=== PATIENT | female | born 1955 | race Caucasian/White ===

== ENCOUNTER 2016-11-15 08:47 | Observation (INO) | payer OTHER ==
[2016-11-15] VITALS (28 sets, daily range): BP systolic 102–143; BP diastolic 59–92; PULSE 70–98; RESP 11–21; Ht 172.7 cm; Wt 73.3 kg
[~2016-11-15] VITALS: Ht 172.7 cm; Wt 73.3 kg
[~2016-11-15 08:47] MED LIST: CEFAZOLIN 2 GM/50 ML (PMX) 50 ML IVPB ONE; SOD CHLORIDE 0.9% 1,000 ML IV SCH
[2016-11-15 09:59] LABS: BASOPHIL # 0.1 10^3/ul (0.0-0.1); BASOPHILS % 1.1 % (0.0-2.0); EOSINOPHILS # 0.2 10^3/ul (0.0-0.5); EOSINOPHILS % 3.5 % (0.0-7.0); HEMATOCRIT 37.7 % (37.0-47.0); HEMOGLOBIN 12.1 g/dl (12.0-16.0); LYMPHOCYTES # 2.2 10^3/ul (0.8-2.9); MEAN CORPUSCULAR HEMOGLOBIN 28.9 pg (29.0-33.0); MEAN CORPUSCULAR HGB CONC 32.1 g/dl (32.0-37.0); MEAN PLATELET VOLUME 9.8 fl (7.4-10.4); MONOCYTE # 0.5 10^3/ul (0.3-0.9); MONOCYTES % 7.6 % (0.0-11.0); NEUTROPHILS % 53.5 % (39.0-77.0); PLATELET COUNT 393 10^3/UL (140-415); RED BLOOD COUNT 4.19 10^6/ul (4.20-5.40); RED CELL DISTRIBUTION WIDTH 13.1 % (11.5-14.5); WHITE BLOOD COUNT 6.6 10^3/ul (4.8-10.8)
[2016-11-15 10:31] LABS: INR 0.9; PROTIME 12.1 Sec (12.2-14.2); PT RATIO 0.9
[2016-11-15 10:32] LABS: PARTIAL THROMBOPLASTIN TIME 30.3 Sec (25.0-35.0)
[2016-11-15 10:44] LABS: ALBUMIN 4.1 g/dl (3.3-4.9); ALBUMIN/GLOBULIN RATIO 1.46; BILIRUBIN,INDIRECT 0.1 mg/dl (0-1.1); BILIRUBIN,TOTAL 0.1 mg/dl (0.2-1.3); TOTAL PROTEIN 6.9 g/dl (6.1-8.1)
[2016-11-15 11:06] LABS: CALCIUM 9.5 mg/dl (8.4-10.2); CREATININE 0.62 mg/dl (0.44-1.00); POTASSIUM 3.8 mmol/L (3.5-5.1)
--- NOTE | 2016-11-15 11:08 | RADRPT ---
PROCEDURE: XR Chest. CLINICAL INDICATION: Preoperative. Left breast cancer. TECHNIQUE: Single frontal view. COMPARISON: None. FINDINGS: The lungs are clear. The heart size is normal. There is no pleural effusion. There is no pneumothorax. IMPRESSION: 1. Normal chest radiograph. RPTAT: QQ .Germán Ruiz MD, MD Date Time Electronically viewed and signed by .Germán Ruiz MD, on 11/15/2016 11:07 .R/
[2016-11-15] MEDS ORDERED: ISOSULFAN BLUE 1% 5 ML INJ SC ONE (12:32)
[2016-11-15] MEDS ORDERED: CEFAZOLIN 1 GM INJ ONE (12:48)
[2016-11-15] MEDS ORDERED: PROPOFOL 20 ML ONE (12:48)
[2016-11-15] MEDS ORDERED: FENTAnyl 50 MCG/ML VIAL ONE (12:48)
[2016-11-15] MEDS ORDERED: ONDANSETRON 4 MG INJ ONE (12:48)
[2016-11-15] MEDS ORDERED: MIDAZOLAM 1 MG/ML 2 ML INJ ONE (12:48)
[2016-11-15] MEDS ORDERED: ROCURONIUM 50 MG INJ ONE (12:48)
[2016-11-15] MEDS ORDERED: METOCLOPRAMIDE 10 MG INJ ONE (12:48)
[2016-11-15] MEDS ORDERED: EPHEDrine SULFATE 50 MG/5 ML SYG ONE (13:18)
[2016-11-15] MEDS ORDERED: DIPHENHYDRAMINE 50 MG INJ IV PRN (13:30)
[2016-11-15] MEDS ORDERED: HYDROmorphONE (0.2 MG/ML) 10ML SYG IV PRN ×3 (13:30)
[2016-11-15] MEDS ORDERED: METOCLOPRAMIDE 10 MG INJ IV PRN (13:30)
[2016-11-15] MEDS ORDERED: ONDANSETRON 4 MG INJ IV PRN (13:30)
[2016-11-15] MEDS ORDERED: MEPERIDINE 25 MG INJ IV PRN (13:30)
[2016-11-15] MEDS ORDERED: OXYCODONE/ACETAMINOPHEN (5/325) TAB PO PRN ×2 (13:30)
[2016-11-15] MEDS ORDERED: HYDROmorphONE 2 MG/ML SYG ONE (13:58)
[2016-11-15] MEDS: traMADol 50 MG TAB PO PRN (15:27)
--- NOTE | 2016-11-15 15:39 | RADRPT ---
Vent Rate: 81 bpm RR Interval: 0 msec MN Interval: 166 msec QRS Duration: 80 msec QT Interval: 406 msec QTC Interval: 471 msec P-R-T Hughes: 51 - 34 - 49 degrees Normal sinus rhythm Cannot rule out Anterior infarct , age undetermined Abnormal ECG Electronically Signed By: Neo Talley [id number]
[2016-11-15] MEDS: ACETAMINOPHEN 1000MG/100ML IV 100 ML IVPB PRN (16:00)
--- NOTE | 2016-11-15 16:26 | OPR ---
DATE OF OPERATION: 11/15/2016 PREOPERATIVE DIAGNOSIS: Large triple negative left breast cancer. POSTOPERATIVE DIAGNOSIS: Large triple negative left breast cancer. OPERATION PERFORMED: Left partial mastectomy with axillary dissection utilizing sentinel lymph node technique, En bloc resection of portion of pectoralis major muscle. ANESTHESIA: General. ANESTHESIOLOGIST: Darby Campbell MD SURGEON: Jackson Mcdaniel MD ASSISTANTS: Freddy Kilgore MD, Elizabeth Kendall MD INDICATIONS FOR PROCEDURE: Patient is a very unfortunate 61-year- old female, alert, who noticed a mass in her left breast that began to grow very rapidly. Eventually she underwent medical evaluation and radiographic workup including biopsy, which revealed approximately 5 cm poorly differentiated, triple negative breast cancer. She was counseled as to the need for surgery where she requested an attempt at breast conservation. She was informed if the final margins were positive, she may need a completion mastectomy and she consented for a left partial mastectomy and axillary dissection utilizing the sentinel lymph node technique. OPERATIVE PROCEDURE: Patient brought to the operating theater and placed under general endotracheal tube anesthesia. The left breast and axillary region was prepped and draped in the usual sterile fashion. Approximately 4 mL of 1 percent Lymphazurin blue dye were then injected peritumoral. The breast was gently massaged for approximately 12 minutes. At this point, a 4 cm incision was made in the left axillary hairline and subcutaneous tissue was dissected with cautery down through the clavipectoral fascia. A dye stained lymphatic was traced to an enlarged sentinel node. There were several other enlarged nodes, therefore Dr. Mcdaniel made the decision to proceed with axillary dissection. With blunt dissection along the chest wall, the long thoracic nerve was identified and kept out of harm's way. More superiorly, the axillary vein and thoracodorsal neurovascular bundle were identified and kept out of harm's way. Level 1 and level 2 lymph node dissection then took place using the LigaSure device and final connective tissue attachments to the latissimus dorsi muscle were transected with cautery. The specimen was sent for pathologic analysis. The wound was irrigated, minimal bleeding was controlled with cautery. A number 10 flat Corey- Dalal drain was then brought through the left mid axillary line, cut to size and laid within the axilla. It was secured in place with 2-0 nylon suture in the standard fashion. The skin was then reapproximated with a 4-0 Vicryl suture in subcuticular fashion. Attention then was directed to performing the partial mastectomy. A very large mass was located between approximately the 11 o'clock and 3 o'clock location approximately 3 cm from nipple areolar border. A large curvilinear incision was made directly over the mass. Subcutaneous tissue was dissected with cautery. The skin edges were elevated with skin hooks and wide circumferential dissection of the tissue associated with the mass took place, taking care to ensure adequate margin. Upon dissecting down to the pectoralis major muscle was found the portions of the tumor were invading the muscle. This portion of the pectoralis major muscle was excised. The specimen was then elevated, transected, oriented and sent for permanent pathologic analysis. The wound was irrigated, minimal bleeding was controlled with cautery. Due to the large size of the defect, Dr. Mcdaniel made the decision to place a 10 flat Corey-Dalal drain within the wound cavity, it was brought through the mid axillary line, cut to size and laid within the wound cavity. The skin was then reapproximated with a 4-0 Vicryl suture in subcuticular fashion. Dermabond was then applied to both wounds. The patient tolerated the procedure well. Total blood loss was approximately 40 cc. There were no complications, and the patient was transported in stable condition to the recovery room, where a circumferential compression dressing was applied. Dictated By: Jackson Mcdaniel MD /abe/nilam /Document#: [id number] GABRIEL
[2016-11-15] MEDS: D5W-0.45 NACL + KCL 20 MEQ 1,000 ML IV SCH ×2 (18:20→22:15)
--- NOTE | 2016-11-15 18:44 | HP ---
DATE OF ADMISSION: 11/15/2016 HISTORY OF PRESENT ILLNESS: The patient is a 61-year-old female who was seen by Dr. Villagomez as an outpatient with poorly differentiated triple negative left breast cancer. The patient was brought into the hospital today and underwent left partial mastectomy and axillary dissection. The patient has history of core biopsy in the past. The patient did have significant postoperative pain and is being admitted for further evaluation. The patient denies any headache or syncope. No history of cough. No history of abdominal pain. No history of vomiting. No history of any previous focal weakness. No history of diabetes, hypertension, congestive heart failure. No history of CVA in the past. The patient reported that she was not taking any medication. Other than postoperative conditions, review of systems unremarkable. ALLERGIES: CODEINE AND IBUPROFEN. SOCIAL HISTORY: No smoking. No alcohol. FAMILY HISTORY: Noncontributory. PHYSICAL EXAMINATION: GENERAL: Patient conscious, awake, alert. VITAL SIGNS: Temperature 97.8, pulse 98, respirations 20, blood pressure 113/63, O2 sat 93-99 percent on room air. HEENT: Head atraumatic, normocephalic. Conjunctive and lids are normal. Oropharynx clear. NECK: No mass. CHEST: Fairly clear. CV: S1, S2 normal. No murmur. ABDOMEN: Soft, nontender. Bowel sounds present. EXTREMITIES: No leg edema. NEURO: The patient is awake, alert, with no gross focal deficit. DATA: Sodium 142, potassium 3.8, BUN 20, creatinine 0.6, glucose 94. Liver enzymes normal. Coagulation profile normal. CBC revealed white count of 6.6, hemoglobin 12.1, platelet 393. IMPRESSION: Invasive triple negative left breast cancer, status post left partial mastectomy and axillary dissection. PLAN: Patient admitted on medical floor. Patient will be started on clear liquid diet and will be advanced as tolerated. Continue SCD for DVT prophylaxis. We will start her on IV Zofran for nausea and vomiting. Continue IV fluids and will use IV Tylenol and Demerol for pain control. We will continue to follow from medical standpoint. Dictated By: Shravan Davsi MD /abe/sotero /Document#: [id number]
[2016-11-16 02:01] VITALS: BP 143/80; RESP 21
[2016-11-16] MEDS: ACETAMINOPHEN 1000MG/100ML IV 100 ML IVPB PRN ×2 (02:10→13:25)
[2016-11-16] MEDS: ONDANSETRON 4 MG INJ IV PRN ×2 (02:10→13:25)
[2016-11-16] MEDS: D5W-0.45 NACL + KCL 20 MEQ 1,000 ML IV SCH ×5 (04:42→22:15)
[2016-11-16 08:05] VITALS: BP 120/75; RESP 16
[2016-11-16] MEDS: traMADol 50 MG TAB PO PRN ×2 (09:04→21:00)
--- NOTE | 2016-11-16 10:51 | PN ---
Date/Time of Note Date/Time of Note DATE: 11/16/16 TIME: 10:51 Assessment/Plan VTE Prophylaxis VTE Prophylaxis Intervention: other Lines/Catheters IV Catheter Type (from Nrsg): Peripheral IV Urinary Cath still in place: No Assessment/Plan Chief Complaint/Hosp Course 1) breast cancer - s/p mastectomy Problems: Subjective 24 Hr Interval Summary Free Text/Dictation Patient has some pain related to mastectomy Exam/Review of Systems Vital Signs Vitals Vital Signs Date Time Temp Pulse Resp B/P Pulse Ox O2 Delivery O2 Flow Rate FiO2 11/16/16 08:05 98.3 80 16 120/75 100 11/15/16 23:25 Room Air 11/15/16 18:30 2.0 Intake and Output 11/15/16 11/15/16 11/16/16 15:00 23:00 07:00 Intake Total 900 ml 260 ml 1725 ml Output Total 42 ml 15 ml 925 ml Balance 858 ml 245 ml 800 ml Exam Constitutional: well developed Head: atraumatic, normocephalic Neck: supple Respiratory: diminished breath sounds Cardiovascular: regular rate and rhythm Gastrointestinal: non-tender, soft Extremities: normal pulses Results Result Diagram: 11/15/16 0942 11/15/16 0942 Medications Medications Current Medications Ondansetron HCl 4 mg 4 mg Q6H PRN IV NAUSEA AND/OR VOMITING Last administered on 11/16/16 02:10; Admin Dose 4 MG; Start 11/15/16 at 14:30 Potassium Chloride/Dextrose/ Sod Cl 1,000 ml @ 125 mls/hr Q8H IV Last administered on 11/16/16 04:42; Admin Dose 125 MLS/HR; Start 11/15/16 at 14:15 Acetaminophen (Ofirmev 1000mg/ 100ml Iv) 100 ml @ 400 mls/hr Q6H PRN IVPB PAIN Last administered on 11/16/16 02:10; Admin Dose 400 MLS/HR; Start 11/15/16 at 14:30 Tramadol HCl (Ultram) 50 mg Q6H PRN PO PAIN LEVEL 6-10 Last administered on 11/16 09:04; Admin Dose 50 MG; Start 11/15/16 at 15:00 LORENZO SUMMERS Nov 16, 2016 10:51
[2016-11-16 14:00] VITALS: BP 118/70; RESP 15
--- NOTE | 2016-11-16 17:07 | PN ---
Date/Time of Note Date/Time of Note DATE: 11/16/16 TIME: 17:01 Assessment/Plan VTE Prophylaxis VTE Prophylaxis Intervention: ambulation, SCD's Lines/Catheters IV Catheter Type (from Nrs): Peripheral IV Urinary Cath still in place: No Assessment/Plan Assessment/Plan 61-year-old female has had partial mastectomy and axillary dissection on the left side. Drainage is bloody from the Corey-Dalal drains. Has been complaining of headache and nausea and has not been able to tolerate diet. We will keep the patient another night. The patient states that she does not have any place to go she lives in a car. Therefore the community mental health social worker tomorrow to work on his placement. Subjective 24 Hr Interval Summary Free Text/Dictation Complains of headache and nausea and pain at the site of operation Exam/Review of Systems Vital Signs Vitals Vital Signs Date Time Temp Pulse Resp B/P Pulse Ox O2 Delivery O2 Flow Rate FiO2 11/16/16 14:00 98.0 84 15 118/70 99 11/15/16 23:25 Room Air 11/15/16 18:30 2.0 Intake and Output 11/15/16 11/15/16 11/16/16 15:00 23:00 07:00 Intake Total 900 ml 260 ml 1725 ml Output Total 42 ml 15 ml 925 ml Balance 858 ml 245 ml 800 ml Exam Awake alert appears depressed. Sign is stable. Some Dalal drains from the time of operation till today morning has been 110 cc. From 7 AM until now is about 30 cc which is more bloody than serosanguineous. Has not had lunch because of nausea Results Result Diagram: 11/15/16 0942 11/15/16 0942 Medications Medications Current Medications Ondansetron HCl 4 mg 4 mg Q6H PRN IV NAUSEA AND/OR VOMITING Last administered on 11/16/16 13:25; Admin Dose 4 MG; Start 11/15/16 at 14:30 Potassium Chloride/Dextrose/ Sod Cl 1,000 ml @ 125 mls/hr Q8H IV Last administered on 11/16/16 13:58; Admin Dose 125 MLS/HR; Start 11/15/16 at 14:15 Acetaminophen (Ofirmev 1000mg/ 100ml Iv) 100 ml @ 400 mls/hr Q6H PRN IVPB PAIN Last administered on 11/16/16 13:25; Admin Dose 400 MLS/HR; Start 11/15/16 at 14:30 Tramadol HCl (Ultram) 50 mg Q6H PRN PO PAIN LEVEL 6-10 Last administered on 11/16 09:04; Admin Dose 50 MG; Start 11/15/16 at 15:00 DEIDRE SCHILLING MD Nov 16, 2016 17:07
[2016-11-16 19:51] VITALS: BP 135/86; RESP 20
[2016-11-17] MEDS: ACETAMINOPHEN 1000MG/100ML IV 100 ML IVPB PRN ×2 (01:49→08:43)
[2016-11-17 02:02] VITALS: BP 132/82; RESP 20
[2016-11-17] MEDS: D5W-0.45 NACL + KCL 20 MEQ 1,000 ML IV SCH ×4 (05:20→22:15)
[2016-11-17] MEDS: traMADol 50 MG TAB PO PRN ×2 (05:22→18:18)
[2016-11-17 06:12] LABS: BASOPHIL # 0.1 10^3/ul (0.0-0.1); BASOPHILS % 0.6 % (0.0-2.0); EOSINOPHILS # 0.4 10^3/ul (0.0-0.5); EOSINOPHILS % 3.8 % (0.0-7.0); HEMATOCRIT 36.2 % (37.0-47.0); HEMOGLOBIN 11.7 g/dl (12.0-16.0); LYMPHOCYTES # 2.4 10^3/ul (0.8-2.9); LYMPHOCYTES % 22.9 % (15.0-51.0); MEAN CORPUSCULAR HEMOGLOBIN 29.5 pg (29.0-33.0); MEAN CORPUSCULAR HGB CONC 32.3 g/dl (32.0-37.0); MEAN CORPUSCULAR VOLUME 91.2 fl (82.0-101.0); MEAN PLATELET VOLUME 10.4 fl (7.4-10.4); MONOCYTE # 0.8 10^3/ul (0.3-0.9); MONOCYTES % 7.3 % (0.0-11.0); NEUTROPHILS % 65.1 % (39.0-77.0); PLATELET COUNT 365 10^3/UL (140-415); RED BLOOD COUNT 3.97 10^6/ul (4.20-5.40); RED CELL DISTRIBUTION WIDTH 13.1 % (11.5-14.5); WHITE BLOOD COUNT 10.3 10^3/ul (4.8-10.8)
[2016-11-17 07:24] VITALS: RESP 19
--- NOTE | 2016-11-17 11:37 | PN ---
Date/Time of Note Date/Time of Note DATE: 11/17/16 TIME: 11:36 Assessment/Plan VTE Prophylaxis VTE Prophylaxis Intervention: other Lines/Catheters IV Catheter Type (from Nrs): Peripheral IV Urinary Cath still in place: No Assessment/Plan Chief Complaint/Hosp Course 1) breast cancer - s/p mastectomy Problems: Subjective 24 Hr Interval Summary Free Text/Dictation Patient still has significant pain related to mastectomy Exam/Review of Systems Vital Signs Vitals Vital Signs Date Time Temp Pulse Resp B/P Pulse Ox O2 Delivery O2 Flow Rate FiO2 11/17/16 07:24 98.3 85 19 96 11/15/16 23:25 Room Air 11/15/16 18:30 2.0 Intake and Output 11/16/16 11/16/16 11/17/16 14:59 22:59 06:59 Intake Total 1125 ml 1800 ml 1700 ml Output Total 1340 ml 1536 ml Balance 1125 ml 460 ml 164 ml Exam Constitutional: well developed Head: atraumatic, normocephalic Neck: supple Respiratory: clear to auscultation Cardiovascular: regular rate and rhythm Gastrointestinal: non-tender, soft Extremities: normal pulses Results Result Diagram: 11/17/16 0449 11/15/16 0942 Results 24 hrs Laboratory Tests Test 11/17/16 04:49 White Blood Count 10.3 # Red Blood Count 3.97 L Hemoglobin 11.7 L Hematocrit 36.2 L Mean Corpuscular Volume 91.2 Mean Corpuscular Hemoglobin 29.5 Mean Corpuscular Hemoglobin Concent 32.3 Red Cell Distribution Width 13.1 Platelet Count 365 Mean Platelet Volume 10.4 Neutrophils % 65.1 Lymphocytes % 22.9 Monocytes % 7.3 Eosinophils % 3.8 Basophils % 0.6 Nucleated Red Blood Cells % 0.0 Neutrophils # (Manual) 6.7 Lymphocytes # 2.4 Monocytes # 0.8 Eosinophils # 0.4 Basophils # 0.1 Nucleated Red Blood Cells # 0.0 Medications Medications Current Medications Ondansetron HCl 4 mg 4 mg Q6H PRN IV NAUSEA AND/OR VOMITING Last administered on 11/16/16 13:25; Admin Dose 4 MG; Start 11/15/16 at 14:30 Potassium Chloride/Dextrose/ Sod Cl 1,000 ml @ 125 mls/hr Q8H IV Last administered on 11/17/16 05:20; Admin Dose 125 MLS/HR; Start 11/15/16 at 14:15 Acetaminophen (Ofirmev 1000mg/ 100ml Iv) 100 ml @ 400 mls/hr Q6H PRN IVPB PAIN Last administered on 11/17/16 08:43; Admin Dose 400 MLS/HR; Start 11/15/16 at 14:30 Tramadol HCl (Ultram) 50 mg Q6H PRN PO PAIN LEVEL 6-10 Last administered on 11/17 05:22; Admin Dose 50 MG; Start 11/15/16 at 15:00 LORENZO SUMMERS Nov 17, 2016 11:37
--- NOTE | 2016-11-17 13:33 | PN ---
Date/Time of Note Date/Time of Note DATE: 11/17/16 TIME: 13:25 Assessment/Plan VTE Prophylaxis VTE Prophylaxis Intervention: ambulation Lines/Catheters IV Catheter Type (from Nrs): Peripheral IV Urinary Cath still in place: No Assessment/Plan Assessment/Plan 61 years old with cancer of the left breast status post left partial mastectomy with axillary dissection postop day #2 today. From surgical point of view she is okay to be discharged but there is a problem of displacement, and states that she usually lives in her car but she is worried by having the Corey-Dalal tubes in place and also pain medication that she is going to get namely Vicodin, she is very anxious to go to her car. Workers are working on this matter to find placement for her. Indication next week she has to call Dr. Villagomez office make an appointment for follow-up she will be discharged with Corey-Dalal drains and Reina and the nurse RN is going to teach her how to take care of that Corey-Dalal drains how to empty them and how to measure the amount of drainage and record them. Subjective 24 Hr Interval Summary Free Text/Dictation No specific complaint in this regard to the site of the operation, patient is very worried about how to go to the place that she lives because she lives in a car she is worried about taking medication for pain to the car. She appears depressed and worried. Exam/Review of Systems Vital Signs Vitals Vital Signs Date Time Temp Pulse Resp B/P Pulse Ox O2 Delivery O2 Flow Rate FiO2 11/17/16 07:24 98.3 85 19 96 11/15/16 23:25 Room Air 11/15/16 18:30 2.0 Intake and Output 11/16/16 11/16/16 11/17/16 15:00 23:00 07:00 Intake Total 1125 ml 1800 ml 1700 ml Output Total 1340 ml 1536 ml Balance 1125 ml 460 ml 164 ml Exam Postop day #2 status post left partial mastectomy with axillary dissection. Vital signs are stable no fever. Breath has drained 48 cc #1 28 cc #2 in past 24 hours. Culture of the drainage is serosanguineous today in the tubing. And appears anxious and depressed she does not want to go back to where she lives that is in her car. Results Result Diagram: 11/17/16 0449 11/15/16 0942 Results 24 hrs Laboratory Tests Test 11/17/16 04:49 White Blood Count 10.3 # Red Blood Count 3.97 L Hemoglobin 11.7 L Hematocrit 36.2 L Mean Corpuscular Volume 91.2 Mean Corpuscular Hemoglobin 29.5 Mean Corpuscular Hemoglobin Concent 32.3 Red Cell Distribution Width 13.1 Platelet Count 365 Mean Platelet Volume 10.4 Neutrophils % 65.1 Lymphocytes % 22.9 Monocytes % 7.3 Eosinophils % 3.8 Basophils % 0.6 Nucleated Red Blood Cells % 0.0 Neutrophils # (Manual) 6.7 Lymphocytes # 2.4 Monocytes # 0.8 Eosinophils # 0.4 Basophils # 0.1 Nucleated Red Blood Cells # 0.0 Medications Medications Current Medications Ondansetron HCl 4 mg 4 mg Q6H PRN IV NAUSEA AND/OR VOMITING Last administered on 11/16/16 13:25; Admin Dose 4 MG; Start 11/15/16 at 14:30 Potassium Chloride/Dextrose/ Sod Cl 1,000 ml @ 125 mls/hr Q8H IV Last administered on 11/17/16 05:20; Admin Dose 125 MLS/HR; Start 11/15/16 at 14:15 Acetaminophen (Ofirmev 1000mg/ 100ml Iv) 100 ml @ 400 mls/hr Q6H PRN IVPB PAIN Last administered on 11/17/16 08:43; Admin Dose 400 MLS/HR; Start 11/15/16 at 14:30 Tramadol HCl (Ultram) 50 mg Q6H PRN PO PAIN LEVEL 6-10 Last administered on 11/17 05:22; Admin Dose 50 MG; Start 11/15/16 at 15:00 DEIDRE SCHILLING MD Nov 17, 2016 13:33
[2016-11-17 19:15] VITALS: BP 150/86; RESP 17
[2016-11-18 02:33] VITALS: BP 118/70; RESP 20
[2016-11-18] MEDS: traMADol 50 MG TAB PO PRN ×2 (05:56→14:30)
[2016-11-18] MEDS: D5W-0.45 NACL + KCL 20 MEQ 1,000 ML IV SCH ×3 (06:15→14:13)
[2016-11-18 07:00] VITALS: BP 139/87; RESP 18
[2016-11-18] MEDS ORDERED: MAGNESIUM HYDROXIDE 30ML CUP PO PRN (07:00)
[2016-11-18] MEDS: ACETAMINOPHEN 1000MG/100ML IV 100 ML IVPB PRN (08:49)
[2016-11-18] MEDS ORDERED: DOCUSATE SODIUM 100 MG CAP PO SCH (09:00)
--- NOTE | 2016-11-18 10:55 | PN ---
Date/Time of Note Date/Time of Note DATE: 11/18/16 TIME: 10:55 Assessment/Plan VTE Prophylaxis VTE Prophylaxis Intervention: other Lines/Catheters IV Catheter Type (from Nrs): Saline Lock Urinary Cath still in place: No Assessment/Plan Chief Complaint/Hosp Course 1) breast cancer - s/p mastectomy Problems: Subjective 24 Hr Interval Summary Free Text/Dictation Patient doing ok, placement resolved Exam/Review of Systems Vital Signs Vitals Vital Signs Date Time Temp Pulse Resp B/P Pulse Ox O2 Delivery O2 Flow Rate FiO2 11/18/16 07:00 98.8 93 18 139/87 95 11/15/16 23:25 Room Air 11/15/16 18:30 2.0 Intake and Output 11/17/16 11/17/16 11/18/16 14:59 22:59 06:59 Intake Total 100 ml 1520 ml 850 ml Output Total 920 ml 820 ml Balance 100 ml 600 ml 30 ml Exam Constitutional: well developed Head: atraumatic, normocephalic Neck: supple Respiratory: clear to auscultation Cardiovascular: regular rate and rhythm Gastrointestinal: non-tender, soft Extremities: normal pulses Results Result Diagram: 11/17/16 0449 11/15/16 0942 Medications Medications Current Medications Ondansetron HCl 4 mg 4 mg Q6H PRN IV NAUSEA AND/OR VOMITING Last administered on 11/16/16 13:25; Admin Dose 4 MG; Start 11/15/16 at 14:30 Potassium Chloride/Dextrose/ Sod Cl 1,000 ml @ 125 mls/hr Q8H IV Last administered on 11/17/16 05:20; Admin Dose 125 MLS/HR; Start 11/15/16 at 14:15 Acetaminophen (Ofirmev 1000mg/ 100ml Iv) 100 ml @ 400 mls/hr Q6H PRN IVPB PAIN Last administered on 11/18/16 08:49; Admin Dose 400 MLS/HR; Start 11/15/16 at 14:30 Tramadol HCl (Ultram) 50 mg Q6H PRN PO PAIN LEVEL 6-10 Last administered on 11/18 05:56; Admin Dose 50 MG; Start 11/15/16 at 15:00 Docusate Sodium (Colace) 100 mg BID PO Last administered on 11/18/16 08:49; Admin Dose 100 MG; Start 11/18/16 at 09:00 Magnesium Hydroxide (Milk Of Mag) 30 ml DAILY PRN PO constipation Last administered on 11/18/16 08:56; Admin Dose 30 ML; Start 11/18/16 at 07:00 LORENZO SUMMERS Nov 18, 2016 10:55
[2016-11-18 14:00] VITALS: BP 159/94; RESP 18
== END 2016-11-18 19:15 | disposition home or self-care (01) ==
LOC: SDS 08:47 → MS1 14:10
PROVIDERS: ADMIT Surgery Surgical Oncology; ATTEND Surgery Surgical Oncology
DX: C50.912 Malignant neoplasm of unspecified site of left female breast (principal); Z17.1 Estrogen receptor negative status [ER-]; J45.909 Unspecified asthma, uncomplicated; Z88.6 Allergy status to analgesic agent; Z88.5 Allergy status to narcotic agent
CPT/HCPCS: 19301; 38525; 38900; 71010; 80053; 85025; 85610; 85730; 88307; 93005; J0131; J0690; J1170; J2250; J2405; J2765; J3010; J3480; Z7500; Z7512; Z7610; G0378; Q9968

== ENCOUNTER → 2016-12-31 | Outpatient (CLI) | payer OTHER ==
--- NOTE | 2017-01-01 14:50 | RADRPT ---
Echocardiogram Report Patient Name: RIMA FREY Gender: Female Date: 1955 Study Date: 31-Dec-2016 Aerophysicist: MARIA LUISA Location: OUTPATIENT Ref. Physician: NEO TALLEY Quality: Good Procedures: Transthoracic echocardiogram with complete 2D, M-Mode, and doppler examination. Indications: Breast Cancer. 2D/M Mode Doppler Measurement Value Normal Ranges Measurement Value Normal Ranges AoR Diam MM 3.7 cm OLIVA Vmax 2.9 cm2 ACS MM 1.9 cm OLIVA VTI 2.9 cm2 LA/Ao MM 0.9 AV Peak Dougie 1.2 m/sec LA Dimen MM 3.3 cm AV Peak PG 6.0 mmHg LVIDd 2D 4.0 3.5 - 5.6 cm AI Peak PG 41.9 mmHg LVIDs 2D 2.7 2.1 - 4.1 cm AI Peak Dougie 3.2 m/sec LVPWd 2D 1.1 0.6 - 1.1 cm AI PHT 421.0 msec IVSd 2D 1.1 0.6 - 1.1 cm LVOT Peak Dougie 1.1 m/sec AoR Diam 2D 3.7 2.0 - 3.7 cm LVOT Peak PG 4.5 mmHg EDV 2D 69.2 cm3 MV E Peak Dougie 0.5 m/sec ESV 2D 20.1 cm3 MV A Peak Dougie 0.7 m/sec EF 2D 60.0 50.0 - 65.0 % MV E/A 0.8 LVOT Diam 2.0 cm MV Decel Time 199 msec MV Decel [place] 3 MV E/A 0.8 TR Peak Doguie 2.2 m/sec TR Peak PG 20.0 mmHg Findings Left Ventricle: Normal left ventricular systolic function. Normal left ventricular cavity size. Normal left ventricular wall thickness. Ejection fraction is visually estimated at 65 %. Right Ventricle: Normal right ventricular size. Normal right ventricular systolic function. Left Atrium: The left atrium is normal in size. Right Atrium: The right atrium is normal in size. Mitral Valve: Normal appearance and function of the mitral valve with trace physiologic regurgitation. Aortic Valve: Normal appearance of the aortic valve. No hemodynamically significant aortic stenosis by doppler. Mild aortic valve regurgitation. Tricuspid Valve: Normal appearance and function of the tricuspid valve with trace physiologic regurgitation. Estimated peak PA systolic pressure 23 mmHg. Pulmonic Valve: Normal pulmonic valve appearance. There is trace pulmonic regurgitation by color. Pericardium: Normal pericardium with no significant pericardial effusion. Aorta: There is mild aortic root dilation measuring 3.7 cm. IVC: Normal size and normal respiratory collapse consistent with normal right atrial pressure. Conclusions 1.Normal left ventricular systolic function. Normal left ventricular cavity size. Normal left ventricular wall thickness. Ejection fraction is visually estimated at 65 %. 2.Normal right ventricular size. Normal right ventricular systolic function. 3.The left atrium is normal in size. 4.The right atrium is normal in size. 5.Normal appearance of the aortic valve. No hemodynamically significant aortic stenosis by doppler. Mild aortic valve regurgitation. 6.No significant valvular stenosis or regurgitation seen of remaining visualized valves. 7.There is mild aortic root dilation measuring 3.7 cm. 8.Normal pericardium with no significant pericardial effusion. Electronically Signed By: Neo Talley 01-Jan-2017 14:49:40 -0700 Patient Name: RIMA FREY Study Date: 31-Dec-2016 [id number]
== END | disposition home or self-care (01) ==
LOC: EKG 08:14
PROVIDERS: ATTEND Internal Medicine Hematology & Oncology
DX: C50.919 Malignant neoplasm of unspecified site of unspecified female breast (principal)
CPT/HCPCS: 93306

== ENCOUNTER 2017-01-01 06:46 | Day surgery (SDC) | payer OTHER ==
[~2017-01-01] VITALS: Ht 172.7 cm; Wt 72.0 kg
[2017-01-01 08:04] VITALS: BP 113/80; PULSE 85; RESP 20; Ht 172.7 cm; Wt 72.0 kg
[2017-01-01] MEDS ORDERED: SOD CHLORIDE 0.9% 500 ML IV SCH (08:28)
[2017-01-01] MEDS ORDERED: LIDOCAINE 2%/EPI 30 ML INJ ONE (09:10)
[2017-01-01] MEDS ORDERED: HEPARIN 1000 UNITS/ML 10 ML INJ ONE (09:10)
[2017-01-01] MEDS ORDERED: SOD CHLORIDE 0.9% 500 ML ONE (09:10)
[2017-01-01] MEDS ORDERED: CEFAZOLIN 1 GM/50 ML (PMX) 50 ML IVPB ONE (10:19)
[2017-01-01] MEDS ORDERED: FENTAnyl 50 MCG/ML VIAL ONE (10:20)
[2017-01-01] MEDS ORDERED: MIDAZOLAM 1 MG/ML 2 ML INJ ONE (10:20)
[2017-01-01] MEDS ORDERED: LIDOCAINE 1% (MDV) 20 ML INJ ONE (10:37)
--- NOTE | 2017-01-01 11:06 | RADRPT ---
PROCEDURE: RIGHT INTERNAL JUGULAR PORT PLACEMENT CLINICAL INDICATION: Breast cancer TECHNIQUE: Versed and Fentanyl were administered by the radiology nurse who monitored the patient. Ancef one gram intravenously was also administered preoperatively. Fluoroscopy time: 0.1 min Number of images/cine sequences: 4 Informed consent was obtained following careful explanations of the risks and benefits of the proced ure. Preliminary ultrasound was obtained and demonstrates a widely patent right internal jugular vei n. Cap, mask, sterile gown, sterile gloves, large sterile sheath, hand hygiene with 2% chlorhexidine was utilized. The patients right chest and neck were prepped and draped in the usual sterile fashion. 1% lidocain e was utilized. The right internal jugular vein was punctured with a micropuncture needle under dire ct ultrasound guidance and a guide wire was advanced into the central veins as confirmed by fluorosc opy. The needle was exchanged for an introducer. A recorded ultrasound image was obtained. A site in the patients chest wall was selected and 1% lidocaine with epinephrine was administered t o the skin. Utilizing a #15 blade, an incision was made and a pocket was created utilizing blunt dis section with a Magy clamp. The pocket was irrigated with normal saline. The catheter of the port was then tunneled retrograde from the pocket towards the puncture site in t he patients neck. A guidewire was advanced through the introducer in the patients neck and the int roducer was exchanged over the wire for a #7 Maldivian sheath, which was placed in the right internal j ugular vein. The catheter was advanced through the peel-away sheath and the sheath was removed. The tip of the catheter was placed in the mid right atrium. The proximal end of the catheter was then cu t to the appropriate length and connected to the port. The port was placed inside the pocket. It flu shed and aspirated well. A photo spot image confirms proper positioning of the catheter tip in the upper right atrium. The incision in the patients chest was closed with interrupted subcutaneous 2-0 Vicryl sutures. The incision in the neck was closed with a subcuticular 4-0 Vicryl suture. Dermabond was applied to bot h incisions and Steri-Strips were also applied. The port was accessed and flushed with heparinized saline. A sterile dressing was applied. The patient tolerated the procedure well COMPARISON: none FINDINGS: as above. RPTAT: AA IMPRESSION: 1. Uncomplicated placement of a #6.6 Maldivian single lumen Power Injectable Port in the right internal jugular vein with its tip overlying the upper right atrium region. 2. The catheter is ready for use. .Vinod Bhatia MD, Date Time Electronically viewed and signed by .Vinod Bhatia MD, on 01/01/2017 11:05 .S/
[2017-01-01 11:55] VITALS: BP 119/74; PULSE 74; RESP 18
== END 2017-01-01 13:10 | disposition home or self-care (01) ==
LOC: SDS 06:46
PROVIDERS: ATTEND Internal Medicine Hematology & Oncology
DX: C50.912 Malignant neoplasm of unspecified site of left female breast (principal); I10 Essential (primary) hypertension; E78.5 Hyperlipidemia, unspecified
CPT/HCPCS: 36561; 76942; C1788; J0690; J1644; J2250; J3010; J7040

== ENCOUNTER 2017-05-08 17:52 | Emergency (ER) | END 2017-05-08 21:14 | disposition left against medical advice (07) ==

== ENCOUNTER 2017-05-09 00:04 | Emergency (ER) | END 2017-05-09 05:14 | disposition home or self-care (01) ==

== ENCOUNTER 2018-07-12 17:51 | Emergency (ER) | payer OTHER ==
[~2018-07-12] VITALS: Wt 75.0 kg
[~2018-07-12 17:51] MED LIST changes: -CEFAZOLIN 2 GM/50 ML (PMX) 50 ML IVPB ONE; +LEVO750T25 PO; -SOD CHLORIDE 0.9% 1,000 ML IV SCH; +TRAM50TA2 PO
[2018-07-12] MEDS ORDERED: IBUPROFEN LIQUID (PED) 20 MG/ML CUP PO STA (20:09)
--- NOTE | 2018-07-12 20:10 | ERD ---
ER Documentation Chief Complaint Chief Complaint r. ankle pain "sprain" per pt. today HPI 62-year-old female, with history of breast cancer, presents emergency department, complaining of right ankle pain after sustaining a forced inversion while the patient was walking. The pain is deep, dull, 6/10, the patient was able to ambulate with support. She denies distal weakness, numbness or tingling. ROS All systems reviewed and are negative except as per history of present illness. Medications Home Meds Active Scripts Ibuprofen* (Motrin*) 400 Mg Tab, 400 MG PO Q6H PRN for PAIN AND OR ELEVATED TEMP, #30 TAB Prov:ALETHA CANDELARIA MD 07/12/18 Acetaminophen* (Tylenol*) 325 Mg Tablet, 2 TAB PO Q6 PRN for PAIN AND OR ELEVATED TEMP, #20 TAB Prov:ALETHA CANDELARIA MD 07/12/18 Tramadol HCl (Tramadol HCl) 50 Mg Tablet, 50 MG PO Q6 PRN for PAIN, #20 TAB Prov:CINTHIA LYNCH MD 05/09/17 Levofloxacin* (Levaquin*) 750 Mg Tablet, 750 MG PO DAILY for 5 Days, TAB Prov:CINTHIA LYNCH MD 05/09/17 Allergies Allergies: Coded Allergies: codeine (Unverified Adverse Reaction, Severe, NAUSEA & VOMITING, 05/09/17) PMhx/Soc History of Surgery: Yes (LEFT BREAST BIOPSY AND LYMPH NODE REMOVAL, TONSILLECTOMY) Anesthesia Reaction: No Hx Neurological Disorder: No Hx Respiratory Disorders: No Hx Cardiac Disorders: No Hx Psychiatric Problems: No Hx Miscellaneous Medical Probl: Yes (BREAST CANCER) Hx Alcohol Use: Yes (SOCIALLY) Hx Substance Use: No Hx Tobacco Use: No Smoking Status: Never smoker Physical Exam Vitals Vital Signs Date Temp Pulse Resp B/P (MAP) Pulse Ox O2 O2 Flow FiO2 Time Delivery Rate 07/12/18 98.7 98 20 140/80 100 18:03 (100) Physical Exam Const: No acute distress Head: Atraumatic Eyes: Normal Conjunctiva ENT: Normal External Ears, Nose and Mouth. Neck: Full range of motion. No meningismus. Resp: Clear to auscultation bilaterally Cardio: Regular rate and rhythm, no murmurs Abd: Soft, non tender, non distended. Normal bowel sounds Skin: No petechiae or rashes Back: No midline or flank tenderness Ext: Right ankle with no gross deformity but significant edema of the lateral malleolus, decreased range of motion due to pain, no cyanosis, or edema Neur: Awake and alert Psych: Normal Mood and Affect Results 24 hrs Current Medications Medications Dose Sig/Ko Start Time Status Last (Trade) Ordered Route PRN Stop Time Admin Dose Reason Admin 320 mg ONCE ONCE 07/12/18 DC 07/12/18 Acetaminophen PO 20:30 20:18 (Tylenol 07/12/18 20:31 Liquid) Ibuprofen 200 mg ONCE STAT 07/12/18 DC 07/12/18 (Motrin PO 20:09 20:19 Liquid 07/12/18 20:15 (Ped)) Patient: RIMA FREY : 1955 Age: 62 Sex: F MR #: [id number] DOS: 07/12/182008 Ordering MD: ALETHA CANDELARIA MD Location: [facility] Room/Bed: PROCEDURE: XR Ankle. CLINICAL INDICATION: 62 years of age, female. Pain. TECHNIQUE: Three views of the right ankle. COMPARISON: None available. FINDINGS: No acute fracture or dislocation is identified. Normal alignment on this non-stressed view. Negative for significant soft tissue swelling. Additional comment: None. IMPRESSION: Negative for evidence of acute fracture or dislocation of the right ankle. Procedures/MDM Acute right ankle pain: no red flags. Differential diagnosis include but not limited to: Ankle sprain/strain, ligament injury, arthritis; low suspicion for fracture, dislocation, septic arthritis. Neurovascular exam grossly intact. no clinical findings suggestive of acute infectious process, no deformity, no rashes. Pertinent Data: X-rays: No fracture or dislocation Physical examination and clinical presentation consistent most likely with right ankle sprain. During the ED course the patient received treatment with Ortho boot and p.o. medications presenting overall improvement of the symptoms. Splint evaluation: Type: Ortho boot Location: Right lower extremity Position: good alignment in anatomical position Neurovascular intact The patient was told that elevating the injured part will help reduce pain and swelling. Ice packs can decrease pain and promote healing when applied in the first two days after an injury. The pack should be dry on the outside. Apply it for half an hour three to four times a day. Results and clinical impression discussed with patient who agrees with management. The patient is stable to be treated outpatient and will be discharged home with recommendations for ice, rest and partial immobilization. NSAIDs 3 times daily for 5 days and close monitoring. The patient was instructed to follow up with the primary care provider in the next 48h. If symptoms persist, worsen or new symptoms develop, then patient should return to the ED immediately. Instructions explained and given to patient with acknowledgment and demonstrated understanding. Disclaimer: Inadvertent spelling and grammatical errors are likely due to EHR/d ictation software use and do not reflect on the overall quality of patient care. Also, please note that the electronic time recorded on this note does not necessarily reflect the actual time of the patient encounter. Departure Diagnosis: Primary Impression: Right ankle sprain Condition: Stable Additional Instructions: Thank you very much for allowing us to participate in your care. Your health and safety is our top priority at [facility]. The evaluation in the emergency department has been done to rule out an acute emergency, therefore, chronic conditions like malignancy or other diseases have not been evaluated; therefore, you need to follow up with a primary care provider in the next 48h. If symptoms persist, worsen or new symptoms develop, then patient should return to the ED immediately. Call your primary care doctor TOMORROW for an appointment during the next 2-4 days and bring all the information provided. Have prescriptions filled and follow precisely the directions on the label. If the symptoms get worse and your provider is unavailable, return to the Emergency Department immediately. ALETHA CANDELARIA MD Jul 12, 2018 20:10
[2018-07-12] MEDS ORDERED: ACETAMINOPHEN 650MG/20.3ML CUP PO ONE (20:30)
[2018-07-12] MEDS ORDERED: ACET325T33 PO (21:10)
[2018-07-12] MEDS ORDERED: IBUP-1561 PO (21:10)
[2018-07-12 21:16] VITALS: BP 132/84; PULSE 72; RESP 16
== END 2018-07-12 21:17 | disposition home or self-care (01) ==
LOC: FTE 17:51
DX: S93.401A Sprain of unspecified ligament of right ankle, initial encounter (principal); X50.1XXA Overexertion from prolonged static or awkward postures, initial encounter; Y92.9 Unspecified place or not applicable; Z85.3 Personal history of malignant neoplasm of breast
CPT/HCPCS: 73610; Z7610